=== PATIENT | male | born 1990 | race African-American/Black ===

== ENCOUNTER 2024-06-12 14:35 | Emergency (ER) | payer OTHER ==
[2024-06-12 15:23] VITALS: BP 153/86; PULSE 45; RESP 18; TEMP 98.3; BMI 35.9
[2024-06-12] MEDS ORDERED: HALOPERIDOL LACTATE 5 MG/ML ONE (15:46)
[2024-06-12] MEDS: HALOPERIDOL LACTATE 5 MG/ML IM ONE (15:58)
[2024-06-12 16:10] LABS: BASO % 0.4 % (0-2.0); HEMATOCRIT 42.1 % (35.4-49); HEMOGLOBIN 13.6 GM/dL (11.7-16.9); LYMPH % 5.8 % (8-40); MCH 24.8 pg (25.7-33.7); MCHC 32.2 g/dl (32.0-35.9); MEAN CELL VOLUME 76.9 fl (80-96); MEAN PLT VOLUME 8.2 fl (7.5-11.1); MONO % 5.9 % (3.8-10.2); NEUT % 87.9 % (42.8-82.8); PLATELET COUNT 326 10^3/uL (134-434); RBC 5.48 M/mm3 (4.00-5.60); RDW 16.4 % (11.9-15.9); WHITE BLOOD COUNT 16.3 K/mm3 (4.0-10.0)
[2024-06-12] MEDS ORDERED: KETOROLAC TROMETHAMINE 15 MG/ML VIAL ONE (17:04)
[2024-06-12 17:06] LABS: POTASSIUM 3.6 mmol/L (3.5-5.1)
[2024-06-12 17:07] LABS: ALBUMIN 3.6 g/dl (3.4-5.0); CALCIUM 8.9 mg/dL (8.5-10.1)
[2024-06-12 17:12] LABS: BILIRUBIN,TOTAL 0.5 mg/dL (0.2-1); TOT PROT 7.5 g/dl (6.4-8.2)
[2024-06-12] MEDS: KETOROLAC TROMETHAMINE 15 MG/ML VIAL IVPUSH ONE (17:12)
== END 2024-06-12 20:40 | disposition home or self-care (01) ==
LOC: JER 14:35
PROC: 3E0333Z Introduction of Anti-inflammatory into Peripheral Vein, Percutaneous Approach (ICD-10-PCS; principal; 2024-06-12)
PROC: 3E023GC Introduction of Other Therapeutic Substance into Muscle, Percutaneous Approach (ICD-10-PCS; 2024-06-12)
DX: R11.2 Nausea with vomiting, unspecified (principal); R10.9 Unspecified abdominal pain
CPT/HCPCS: 36415; 74177-TC; 80053; 82550; 83690; 83735; 85025; 93005; 93010; 99285-25; Q9967

== ENCOUNTER 2024-06-13 19:15 | Emergency (ER) | payer OTHER ==
[2024-06-13 19:59] VITALS: BP 168/84; PULSE 56; RESP 15; TEMP 98.3; BMI 36.6
[2024-06-13] MEDS: ALBUTEROL SO4 2.5/IPRATROPIUM 0.5 INH SOL 3 ML VIAL.NEB. NEB SCH (20:00)
[2024-06-13] MEDS ORDERED: FAMOTIDINE 20 MG/50 ML IVPB 20 MG/50 ML MG IVPB ONE (20:01)
[2024-06-13] MEDS ORDERED: ONDANSETRON 4 MG/2 ML VIAL ONE (20:01)
[2024-06-13] MEDS: FAMOTIDINE 20 MG/50 ML IVPB 20 MG/50 ML MG IVPB ONE (20:11)
[2024-06-13] MEDS: ONDANSETRON 4 MG/2 ML VIAL IVPUSH ONE (20:11)
[2024-06-13] MEDS: ACETAMINOPHEN 1000 MG/100 ML BAG IVPB ONE (20:45)
[2024-06-13] MEDS: HALOPERIDOL LACTATE 5 MG/ML IM ONE (20:45)
[2024-06-13] MEDS: MAG HYDROX/AL HYDROX/SIMETH 30 ML UNIT-DOSE CUP PO ONE (20:45)
[2024-06-13] MEDS ORDERED: HALOPERIDOL LACTATE 5 MG/ML ONE (21:23)
[2024-06-13] MEDS ORDERED: MAG HYDROX/AL HYDROX/SIMETH 30 ML UNIT-DOSE CUP ONE (21:23)
[2024-06-13] MEDS ORDERED: ACETAMINOPHEN INJECTION 100 ML IVPB ONE (21:23)
[2024-06-13 21:28] LABS: BASO % 0.2 % (0-2.0); HEMATOCRIT 44.3 % (35.4-49); HEMOGLOBIN 14.3 GM/dL (11.7-16.9); LYMPH % 11.6 % (8-40); MCHC 32.3 g/dl (32.0-35.9); MEAN CELL VOLUME 77.4 fl (80-96); MEAN PLT VOLUME 8.4 fl (7.5-11.1); NEUT % 80.2 % (42.8-82.8); PLATELET COUNT 300 10^3/uL (134-434); RBC 5.72 M/mm3 (4.00-5.60); RDW 16.3 % (11.9-15.9); WHITE BLOOD COUNT 13.3 K/mm3 (4.0-10.0)
[2024-06-13 21:30] LABS: POTASSIUM 3.2 mmol/L (3.5-5.1)
[2024-06-13 21:32] LABS: CALCIUM 8.4 mg/dL (8.5-10.1)
[2024-06-13 21:33] LABS: ALBUMIN 3.6 g/dl (3.4-5.0); BLOOD UREA NITROGEN 15.9 mg/dL (7-18); MAGNESIUM 2.1 mg/dL (1.8-2.4)
[2024-06-13 21:37] LABS: BILIRUBIN,TOTAL 0.5 mg/dL (0.2-1); TOT PROT 7.8 g/dl (6.4-8.2)
[2024-06-13] MEDS ORDERED: POTASSIUM CHLORIDE TABS 20 MEQ TABLET.ER (FP) PO ONE (22:17)
[2024-06-13] MEDS: POTASSIUM CHLORIDE TABS 20 MEQ TABLET.ER (FP) PO ONE (22:20)
== END 2024-06-13 22:26 | disposition home or self-care (01) ==
LOC: JER 19:15
PROC: 3E033GC Introduction of Other Therapeutic Substance into Peripheral Vein, Percutaneous Approach (ICD-10-PCS; principal; 2024-06-13)
PROC: 3E033GC Introduction of Other Therapeutic Substance into Peripheral Vein, Percutaneous Approach (ICD-10-PCS; 2024-06-13)
PROC: 3E033NZ Introduction of Analgesics, Hypnotics, Sedatives into Peripheral Vein, Percutaneous Approach (ICD-10-PCS; 2024-06-13)
PROC: 3E023GC Introduction of Other Therapeutic Substance into Muscle, Percutaneous Approach (ICD-10-PCS; 2024-06-13)
DX: R11.2 Nausea with vomiting, unspecified (principal); K21.9 Gastro-esophageal reflux disease without esophagitis; R10.9 Unspecified abdominal pain; R05.9 Cough, unspecified; R07.0 Pain in throat; Z20.822 Contact with and (suspected) exposure to COVID-19
CPT/HCPCS: 0241U-QW; 36415; 71046-TC-FY; 76705-TC; 80053; 83690; 83735; 85025; 93005; 93010; 99285-25; J0131

== ENCOUNTER 2024-06-14 07:48 | Observation (INO) | payer OTHER ==
[2024-06-14] MEDS: LACTATED RINGERS SOLUTION 1000 ML INFUS.BAG IV ONE ×2 (08:45→14:08)
[2024-06-14 08:51] LABS: RBC 5.35 M/mm3 (4.00-5.60); WHITE BLOOD COUNT 15.8 K/mm3 (4.0-10.0)
[2024-06-14 08:52] LABS: BASO % 0.3 % (0-2.0); EOS % 0.1 % (0-4.5); HEMATOCRIT 41.1 % (35.4-49); HEMOGLOBIN 13.5 GM/dL (11.7-16.9); LYMPH % 8.7 % (8-40); MCH 25.2 pg (25.7-33.7); MCHC 32.7 g/dl (32.0-35.9); MEAN CELL VOLUME 76.8 fl (80-96); MEAN PLT VOLUME 8.1 fl (7.5-11.1); MONO % 11.1 % (3.8-10.2); NEUT % 79.8 % (42.8-82.8); PLATELET COUNT 304 10^3/uL (134-434); RDW 16.3 % (11.9-15.9)
[2024-06-14 09:06] LABS: POTASSIUM 3.3 mmol/L (3.5-5.1)
[2024-06-14 09:08] LABS: ALBUMIN 3.5 g/dl (3.4-5.0); BLOOD UREA NITROGEN 17.1 mg/dL (7-18); CALCIUM 8.5 mg/dL (8.5-10.1); MAGNESIUM 2.2 mg/dL (1.8-2.4)
[2024-06-14 09:12] LABS: TOT PROT 7.6 g/dl (6.4-8.2)
[2024-06-14 09:13] LABS: BILIRUBIN,TOTAL 0.6 mg/dL (0.2-1)
[2024-06-14] MEDS ORDERED: POTASSIUM CHLORIDE ORAL LIQUID 20 MEQ/15 ML ONE (09:15)
[2024-06-14] MEDS: POTASSIUM CHLORIDE ORAL LIQUID 20 MEQ/15 ML PO ONE (09:24)
[2024-06-14] MEDS: LACTATED RINGERS SOLUTION 1,000 ML/1,000 ML INFUS.BAG IV SCH ×2 (10:31→11:46)
[2024-06-14] MEDS ORDERED: ONDANSETRON 4 MG/2 ML VIAL IVPUSH PRN (11:33)
[2024-06-14] MEDS ORDERED: ACETAMINOPHEN 500 MG TABLET (FP) PO PRN (13:18)
[2024-06-14] MEDS ORDERED: MAG HYDROX/AL HYDROX/SIMETH 30 ML UNIT-DOSE CUP PO PRN (13:19)
[2024-06-14] MEDS ORDERED: MAG HYDROX/AL HYDROX/SIMETH 30 ML UNIT-DOSE CUP ONE (14:52)
[2024-06-14 16:55] VITALS: BMI 33.3
[2024-06-14] MEDS: ONDANSETRON 4 MG/2 ML VIAL IVPUSH PRN (18:17)
[2024-06-14] MEDS: PANTOPRAZOLE SODIUM 40 MG VIAL IVPUSH SCH (18:17)
[2024-06-14] MEDS: SUCRALFATE 1 GM TABLET (FP) PO SCH (22:44)
[2024-06-15 08:42] LABS: HEMATOCRIT 42.3 % (35.4-49); HEMOGLOBIN 14.1 GM/dL (11.7-16.9); MCH 25.7 pg (25.7-33.7); MCHC 33.2 g/dl (32.0-35.9); MEAN CELL VOLUME 77.3 fl (80-96); MEAN PLT VOLUME 8.9 fl (7.5-11.1); PLATELET COUNT 288 10^3/uL (134-434); RBC 5.47 M/mm3 (4.00-5.60); RDW 15.9 % (11.9-15.9); WHITE BLOOD COUNT 14.1 K/mm3 (4.0-10.0)
[2024-06-15 09:05] LABS: POTASSIUM 3.4 mmol/L (3.5-5.1)
[2024-06-15 09:18] LABS: CALCIUM 8.6 mg/dL (8.5-10.1); MAGNESIUM 2.2 mg/dL (1.8-2.4)
[2024-06-15 09:19] LABS: BLOOD UREA NITROGEN 13.5 mg/dL (7-18)
[2024-06-15 09:22] LABS: PHOSPHOROUS 2.6 mg/dL (2.5-4.9)
[2024-06-15] MEDS: POTASSIUM CHLORIDE ORAL LIQUID 20 MEQ/15 ML PO ONE (09:57)
[2024-06-15] MEDS: PANTOPRAZOLE 40 MG TABLET PO SCH (17:45)
[2024-06-15] MEDS: ONDANSETRON *ODT* 4 MG TABLET SL PRN (17:45)
[2024-06-15] MEDS: ACETAMINOPHEN 1000 MG/100 ML BAG IVPB PRN (19:30)
[2024-06-15] MEDS: ONDANSETRON 4 MG/2 ML VIAL IVPUSH PRN (19:33)
[2024-06-15] MEDS: MAG HYDROX/AL HYDROX/SIMETH 30 ML UNIT-DOSE CUP PO ONE (22:25)
[2024-06-15] MEDS: PROMETHAZINE HCL 25 MG TABLET PO ONE (22:58)
[2024-06-15 23:42] LABS: EPI CELLS 20 /uL (0-25.1); HYALINE CASTS 0 /uL (0-3.1); PH,URINE 7.5 (5.0-8.0); URINE APPEARANCE CLEAR; URINE BACTERIA 58 /uL (0-1359); URINE BILIRUBIN NEGATIVE (NEGATIVE); URINE COLOR YELLOW; URINE GLUCOSE (UA) NEGATIVE (NEGATIVE); URINE KETONE 1+ (NEGATIVE); URINE LEUK ESTERASE NEGATIVE (NEGATIVE); URINE NITRITE NEGATIVE (NEGATIVE); URINE PROTEIN 1+ (NEGATIVE); URINE RBC 523 /uL (0-23.9); URINE WBC 15 /uL (0-25.8)
[2024-06-15 23:53] LABS: OPIATES, URI NEGATIVE (NEGATIVE); URINE AMPHETAMINES NEGATIVE (NEGATIVE); URINE BARBITURATES NEGATIVE (NEGATIVE)
[2024-06-15 23:54] LABS: METHADONE, UR NEGATIVE (NEGATIVE); URINE BENZODIAZEPINES NEGATIVE (NEGATIVE)
[2024-06-16 00:13] LABS: COCAINE, UR NEGATIVE (NEGATIVE); PHENCYCLIDINE,URINE NEGATIVE (NEGATIVE)
[2024-06-16 07:01] VITALS: BP 138/74; PULSE 53; RESP 17; TEMP 98.1
[2024-06-16 08:25] LABS: BASO % 0.5 % (0-2.0); EOS % 0.3 % (0-4.5); HEMATOCRIT 44.7 % (35.4-49); HEMOGLOBIN 14.9 GM/dL (11.7-16.9); LYMPH % 16.5 % (8-40); MCH 25.7 pg (25.7-33.7); MCHC 33.4 g/dl (32.0-35.9); MEAN CELL VOLUME 76.9 fl (80-96); MEAN PLT VOLUME 8.2 fl (7.5-11.1); MONO % 13.7 % (3.8-10.2); PLATELET COUNT 294 10^3/uL (134-434); RBC 5.81 M/mm3 (4.00-5.60); RDW 16.1 % (11.9-15.9); WHITE BLOOD COUNT 12.8 K/mm3 (4.0-10.0)
[2024-06-16 08:42] LABS: POTASSIUM 3.5 mmol/L (3.5-5.1)
[2024-06-16 08:45] LABS: CALCIUM 8.8 mg/dL (8.5-10.1)
[2024-06-16 08:46] LABS: ALBUMIN 3.5 g/dl (3.4-5.0); BLOOD UREA NITROGEN 14.2 mg/dL (7-18)
[2024-06-16 08:49] LABS: CREATININE 0.9 mg/dL (0.55-1.3)
[2024-06-16 08:50] LABS: BILIRUBIN,TOTAL 0.9 mg/dL (0.2-1); TOT PROT 7.8 g/dl (6.4-8.2)
[2024-06-16 10:27] LABS: MAGNESIUM 2.3 mg/dL (1.8-2.4)
[2024-06-16 10:30] LABS: PHOSPHOROUS 3.3 mg/dL (2.5-4.9)
== END 2024-06-16 12:45 | disposition home or self-care (01) ==
LOC: JER 07:48 → JERBED 09:21 → J4W 15:42
PROVIDERS: ADMIT Internal Medicine; ATTEND Internal Medicine
PROC: 3E033NZ Introduction of Analgesics, Hypnotics, Sedatives into Peripheral Vein, Percutaneous Approach (ICD-10-PCS; principal; 2024-06-14)
PROC: 3E0337Z Introduction of Electrolytic and Water Balance Substance into Peripheral Vein, Percutaneous Approach (ICD-10-PCS; 2024-06-14)
PROC: 3E033GC Introduction of Other Therapeutic Substance into Peripheral Vein, Percutaneous Approach (ICD-10-PCS; 2024-06-14)
DX: E87.6 Hypokalemia (principal); R11.2 Nausea with vomiting, unspecified; F12.10 Cannabis abuse, uncomplicated; R55 Syncope and collapse; J45.909 Unspecified asthma, uncomplicated; R00.1 Bradycardia, unspecified
CPT/HCPCS: 0241U-QW; 36415; 71046-TC-FY; 74018-TC-FY; 76705-TC; 80048; 80053; 80061; 80307; 81003; 83690; 83735; 84100; 84443; 84484; 85025; 85027; 93005; 93010; 96361; 96374; 96375; 96376; 99285-25; G0378; J0131; Q0162